=== PATIENT | male | born 1990 | race African-American/Black ===

== ENCOUNTER 2019-04-30 07:21 | Emergency (ER) | payer OTHER ==
[~2019-04-30] VITALS: Ht 165.1 cm; Wt 77.1 kg
--- NOTE | 2019-04-30 07:50 | NUR ---
Patient given written and verbal discharge instructions. Patient verbalizes understanding & compliance of instructions. Patient is ambulatory with brisk steady gait. Patient refuses offer of halfway placement. Patient was also given a list of available shelters in surrounding area. Patient signed the [employer] waiver form.
== END 2019-04-30 07:54 | disposition home or self-care (01) ==
LOC: ER 07:21
DX: B00.1 Herpesviral vesicular dermatitis (principal); L01.00 Impetigo, unspecified
CPT/HCPCS: A4663